=== PATIENT | male | born 1965 | race Caucasian/White ===

== ENCOUNTER → 2018-01-10 | Outpatient (CLI) | payer OTHER ==
[~2018-01-10] MED LIST: HYDR1TAB PO
--- NOTE | 2018-01-10 17:42 | Diagnostic Imaging Report ---
INDICATION: Fall. Injury. COMPARISON: None. FINDINGS: Three radiographic views of the left humerus were obtained. There is an acute oblique oriented fracture of the proximal humeral shaft. There is also comminuted fracture extending into the surgical neck of the proximal humerus and potentially into the greater tubercle. There is mild displacement with angulation at the fracture site. Glenohumeral joint space otherwise appears intact. No unexpected radiopaque foreign bodies are seen. IMPRESSION: 1. Acute appearing complex fracture of the proximal left humerus as described above. Dictated by: Dictated on workstation # [id number]
== END ==
LOC: RAD 16:24
PROVIDERS: ATTEND Orthopaedic Surgery
DX: S42.222A 2-part displaced fracture of surgical neck of left humerus, initial encounter for closed fracture (principal); W19.XXXA Unspecified fall, initial encounter
CPT/HCPCS: 73060

== ENCOUNTER → 2019-10-29 | Outpatient (CLI) | payer OTHER | LOC: CARD 13:07 | PROVIDERS: ATTEND Physician Assistant | DX: I48.0 Paroxysmal atrial fibrillation (principal); E78.2 Mixed hyperlipidemia; Z82.49 Family history of ischemic heart disease and other diseases of the circulatory system; I11.9 Hypertensive heart disease without heart failure | CPT/HCPCS: 93306 ==

== ENCOUNTER → 2020-01-24 | Outpatient (CLI) | payer OTHER ==
[~2020-01-24] VITALS: Ht 184 cm; Wt 101.0 kg
[~2020-01-24] MED LIST changes: +CATHETER FLUSH 10 ML SYR IV PRN; +REGADENOSON 0.4 MG/5 ML SYR (LEXISCAN) IV ONE
[2020-01-24 08:10] VITALS: BP 152/84
--- NOTE | 2020-01-24 14:56 | Cardiology Stress Test Report ---
Stress Test Report Date of Procedure/Referring: Date of Procedure: Jan 24, 2020 PCP Alice Cespedes Admitting Physician No,Local Physician Indications: Chest pain, hypertension Baseline Heart Rate: 55 Baseline Blood Pressure: Blood Pressure Systolic: 152 Blood Pressure Diastolic: 84 Baseline Vitals Vital Signs Date Time Temp Pulse Resp B/P (MAP) Pulse Ox O2 Delivery O2 Flow Rate FiO2 01/24/20 08:10 85 152/84 (106) 99 Baseline EKG: Baseline EKG: normal sinus rhythm Summary Patient was scheduled for exercise Myoview stress test, was unable to exercise beyond 2 minutes and 30 seconds on standard Josué protocol did not achieve his target heart rate, test was terminated and converted to Lexiscan After explaining the procedure to the patient, he signed a consent and then brought to the stress nuclear laboratory. Patient received 0.4 mg Lexiscan for stress test, ECG, heart rate and blood pressure were monitored continuously. Resting and stress dose of radio tracer were injected, imaging was acquired and reviewed in short axis, horizontal long axis and vertical long axis views. TID: 1.14 SSS: 8 SDS: 5 EF: 55 1. Patient was unable to exercise beyond 2 minutes 30 seconds on standard Josué protocol achieving only 77 percent of maximum expected heart rate test was converted to Lexiscan Myoview stress Test 2. Patient developed shortness of breath with Lexiscan resolved late in and recovery 3. Baseline hypertension persisted during test with blood pressure up to 200/110 4. Diaphragmatic attenuation with reversible ischemia involving the mid to apical inferior wall and inferolateral wall 5. Normal left ventricular size, EF 55 percent CHALINO VERDUGO MD Jan 24, 2020 14:56
== END ==
LOC: CARD 07:00
PROVIDERS: ATTEND Physician Assistant
DX: I48.0 Paroxysmal atrial fibrillation (principal); I10 Essential (primary) hypertension; E78.2 Mixed hyperlipidemia; Z72.0 Tobacco use
CPT/HCPCS: 78452; 93017; A9502

== ENCOUNTER 2020-02-07 07:48 | Observation (INO) | payer OTHER ==
[~2020-02-07] VITALS: Ht 182.9 cm; Wt 100.7 kg
[~2020-02-07 07:48] MED LIST changes: -CATHETER FLUSH 10 ML SYR IV PRN; -REGADENOSON 0.4 MG/5 ML SYR (LEXISCAN) IV ONE
--- NOTE | 2020-02-07 08:00 | NUR ---
LUCINDA CORNELIUS JR admitted to room 508-1, with an admitting diagnosis of chest pain, on 02/07/20 from home, accompanied by staff.LUCINDA CORNELIUS JR introduced to surroundings, call light, bed controls, phone, TV, temperature control, lights, meal times, smoking policy, visitor policy, side rail policy, bathrooms and showers. Patient Rights given to patient in the handbook. LUCINDA CORNELIUS JR verbalizes understanding that [facility] is not responsible for the loss or damage to any personal effects or valuables that are kept in the patients posession during their hospitalization. LUCINDA CORNELIUS JR verbalizes understanding of Interdisciplinary Patient Education. Patient and/or family were informed about the Rapid Response Team and its purpose.
[2020-02-07] MEDS ORDERED: NS IV 1000 ML 1,000 ML IV SCH ×2 (08:30→10:14)
[2020-02-07] MEDS ORDERED: fentaNYL INJECTION 100 MCG/2 ML AMP ONE (09:15)
[2020-02-07] MEDS ORDERED: MIDAZOLAM 5 MG/5 ML (VERSED) VIAL ONE (09:15)
[2020-02-07] MEDS ORDERED: LIDOCAINE 1% INJ 20 ML 20 ML VIAL ONE (09:15)
[2020-02-07] MEDS ORDERED: HEParin (CATH LAB) 2,000 ML IV ONE (09:16)
[2020-02-07 09:21] LABS: HEMOGLOBIN 14.7 g/dL (13.3-17.7); MEAN PLATELET VOLUME 9.1 fL (9.0-12.2); WHITE BLOOD COUNT 5.2 10^3/uL (4.3-11.0)
[2020-02-07 09:27] LABS: CHLORIDE 97 MMOL/L (98-107); POTASSIUM 4.3 MMOL/L (3.6-5.0); SODIUM 138 MMOL/L (135-145)
[2020-02-07 09:28] LABS: CALCIUM 9.1 MG/DL (8.5-10.1)
[2020-02-07 09:29] LABS: GLUCOSE 105 MG/DL (70-105); PROTHROMBIN TIME PATIENT 13.6 SEC (12.2-14.7)
[2020-02-07 09:30] LABS: CARBON DIOXIDE 27 MMOL/L (21-32)
[2020-02-07 09:33] LABS: BUN/CREATININE RATIO 11; CREATININE SERUM 0.89 MG/DL (0.60-1.30); GFR ESTIMATED > 60
--- NOTE | 2020-02-07 09:40 | NUR ---
patient off floor for heart cath at this time
[2020-02-07] MEDS ORDERED: VERAPAMIL 5 MG/2 ML (CALAN) VIAL IV ONE (09:51)
[2020-02-07] MEDS ORDERED: NITRO DRIP 25000 MCG/D5W 250 ML IV ONE (09:51)
[2020-02-07] MEDS ORDERED: HEParin 1000 UNIT/ML (10ML VIAL) FOR BOLUS ONE (09:51)
[2020-02-07] MEDS ORDERED: meTOprolol 5 MG/5 ML (LOPRESSOR) VIAL ONE (10:03)
--- NOTE | 2020-02-07 10:16 | Discharge Inst-Post CATH ---
Discharge Inst-CATH/EP Problems Reviewed?: Yes Post Cardiac Cath/EP D/C Inst Follow Up/Plan Appointment with Dr. Hewitt's office in 4-8 weeks <b>CARDIAC CATH/EP PROCEDURE DISCHARGE INSTRUCTIONS</b> ACTIVITY * Go Home directly and rest. * Limit activity of the leg (or wrist if it was used) for 7 days including aerobics, swimming, jogging, bicycling, etc. * Restrict stair-climbing for 7 days if possible, if not, climb up with your non-cath leg, then bring together on the same step. * Avoid lifting, pushing, pulling or excessive movement of the affected extremity for 7 days. * Customary sexual activity may be resumed after 2 days-use caution not to use a position that strains or causes pain to the affected extremity. * No driving for 24 hours. * NO SMOKING. * Avoid straining for bowel movements for 7 days. * Gentle walking on level ground is allowed. * Returning to work will depend on the type of procedure and the results. Your doctor will discuss this with you. CALL YOUR DOCTOR FOR ANY OF THE FOLLOWING: *If bleeding from the puncture site occurs- Apply gentle pressure to site with clean cloth and call your doctor or EMS. * If a knot or lump forms under the skin, increases in size, or causes pain. * If bruising appears to be worsening or moving further down your leg instead of disappearing. * Temperature above 101 F. CARE OF YOUR GROIN INCISION; * Bruising or purple discoloration of the skin near the puncture site is common. * You may shower only, no bathtub bathing for 5 days. Be careful to avoid slipping as your leg may feel stiff. * If a closure device was used on your femoral artery, please see the attached guide regarding care of the device and your leg. * Leave dressing on FOR 24 hours. CARE OF YOUR WRIST INCISION; * Bruising or purple discoloration of the skin near the puncture site is common. * You may shower. * DO NOT submerge wrist. * Leave dressing on FOR 24 hours. CHALINO HEWITT MD Feb 07, 2020 10:16 am
--- NOTE | 2020-02-07 10:17 | Cardiac Procedure Note-CS/ASA ---
Pre-Procedure Note Pre-Op Procedure Note H&P Reviewed The H&P was reviewed, patient examined and no changes noted. Date H&P Reviewed: Feb 07, 2020 Time H&P Reviewed: 09:00 Conscious Sedation Pre-Proced Time 09:00 ASA Score 3 For ASA 3 and 4: Consider anesthesia and medical clearance. Also, for patients with a history of failed moderate sedation consider anesthesia. Airway Lungs Heart ASA score ASA 1: a normal healthy patient ASA 2: a patient with a mild systemic disease (mid diabetes, controlled hypertension, obesity x ASA 3: a patient with a severe systemic disease that limits activity (angina, COPD, prior Myocardial infarction) ASA 4: a patient with an incapacitating disease that is a constant threat to life (CHF, renal failure) ASA 5: a moribund patient not expected to survive 24 hrs. (ruptured aneurysm) ASA 6: a declared brain- patient whose organs are being harvested. For emergent operations, add the letter E after the classification Mallampati Classification Grade 3 Sedation Plan Analgesia, Amnesia, Plan communicated to team members, Discussed options with patient/fam, Discussed risks with patient/fam The patient is an appropriate candidate to undergo the planned procedure, sedation, and anesthesia. The patient immediately re-assessed prior to indication. CHALINO VERDUGO MD Feb 07, 2020 10:17 am
--- NOTE | 2020-02-07 10:19 | Cardiac Cath Report ---
Cardiac Cath Report Physician (s)/Street Superintendent (s) Physician CHALINO VERDUGO MD Pre-Procedure Diagnosis Pre-Procedure Diagnosis: coronary artery disease Post-Procedure Note Procedure Start Date: Feb 07, 2020 Name of Procedure: Left heart catheterization Findings/Procedure Note PROCEDURE NOTE: 54 years old gentleman with history of chest pain, had an abnormal stress test with inferior wall ischemia, scheduled for cardiac catheterization possible PTCA. After explaining the procedure to the patient, all pros and cons were explained, all questions were answered. The patient signed the consent and then he was placed on the cardiac catheterization laboratory. Groin was prepped SL fashion local anesthesia was used. Sheath placed in the right radial artery, Emerson catheter advanced to the left ventricular cavity, pressure was measured, pullback LV to aorta was done, advanced to the right then the left coronary system and angiogram was done. At the end of the procedure the sheath was removed. Vascular band deployment FINDINGS: Hemodynamics LV 106 over 2, end-diastolic pressure of 2 Aorta 96/72 mean of 82 ANATOMY: Left Main is free of obstructive disease Left Anterior Descending is slightly tortuous with mild disease nonobstructive disease Left Circumflex is moderately tortuous with no obstructive disease Right Coronory Artery is dominant artery with no obstructive disease LV Gram was not done, pressure was measured CONCLUSION: 1. Dominant right coronary system, mildly tortuous coronaries with mild disease nonobstructive disease 2. Normal left ventricular end-diastolic pressure DISCUSSION AND RECOMMENDATION: Continue with conservative management, patient does not need any change in his treatment at this time Anesthesia Type: Conscious Sedation Estimated blood loss (mL): 10 ml Contrast Amount: 32 ml Total Radiation Dose: 273 mGy Post-Procedure Diagnosis Post-operative diagnosis: Chest pain Coronary artery disease Hypertension Hyperlipidemia CHALINO VERDUGO MD Feb 07, 2020 10:19 am
--- NOTE | 2020-02-07 13:04 | NUR ---
site is no longer pushing out air at this time. scenic arts supervisor notified and instructed this RN to take bracelet off and apply gauze and opsite over area instructing patient to not remove site for 24hrs. bracelet removed, area clean, dry intact, no bleeding or bruising noted at this time.
[2020-02-07 13:40] VITALS: BP 145/94
--- NOTE | 2020-02-07 13:40 | NUR ---
rechecked site at this time post bracelet removal, gauze dressing is clean, dry, intact, not signs of bruising, radial pulse is strong, vitals are stable, patient is able to move fingers, and has less then 3 cap refill in right hand. patient is okay to discharge home at this time. instructed to make follow up appointment with Dr Hewitt for 4-8 weeks, this RN attempted to call and clinic phone is busy at this time
== END 2020-02-07 13:40 | disposition home or self-care (01) ==
LOC: CSD 07:48
PROVIDERS: ADMIT Internal Medicine Cardiovascular Disease; ATTEND Internal Medicine Cardiovascular Disease
DX: I25.10 Atherosclerotic heart disease of native coronary artery without angina pectoris (principal); I10 Essential (primary) hypertension; Z88.8 Allergy status to other drugs, medicaments and biological substances; E78.2 Mixed hyperlipidemia; Z91.048 Other nonmedicinal substance allergy status; Z79.899 Other long term (current) drug therapy; Z83.3 Family history of diabetes mellitus
CPT/HCPCS: 80048; 85027; 85610; 85730; 87081; 93005; 93458; C1894; 36415